=== PATIENT | female | born 1950 | race Caucasian/White ===

== ENCOUNTER → 2021-02-08 | Outpatient (CLI) | payer MEDICARE, OTHER ==
--- NOTE | 2021-02-08 10:05 | CARD ---
MR#: [id number] Date of Study: 02/08/2021 Ordering Physician: JAY GALDAMEZ, Referring Physician: JAY GALDAMEZ, Tech: Massiel Young [facility] APPROVED REPORT EXAM: Two-dimensional and M-mode echocardiogram with Doppler and color Doppler. Other Information Quality : Average Rhythm : Pacemaker INDICATION Dyspnea Surgery/Intervention Pacemaker: RISK FACTORS Hypertension Hyperlipidemia 2D DIMENSIONS RVDd3.1 (2.9-3.5cm)Left Atrium(2D)3.0 (1.6-4.0cm) IVSd0.9 (0.7-1.1cm)Aortic Root(2D)3.2 (2.0-3.7cm) LVDd4.9 (3.9-5.9cm)LVOT Diameter2.3 (1.8-2.4cm) PWd0.7 (0.7-1.1cm)LVDs3.5 (2.5-4.0cm) FS (%) 27.9 %SV60.7 ml LVEF(%)53.9 (>50%) Aortic Valve AoV Peak Terry.130.9cm/sAoV VTI23.9cm AO Peak GR.6.8mmHgLVOT Peak Terry.67.8cm/s AO Mean GR.3mmHgAVA (VMAX)2.20cm2 Pulmonary Valve PV Peak Asgmuljh61.7cm/s Tricuspid Valve TR P. Fjrmidig358nv/sTR Peak Gr.32mmHg LEFT VENTRICLE The left ventricle is normal size. There is normal left ventricular wall thickness. The left ventricu lar systolic function is moderately impaired. The ejection fraction is estimated at 35%. There is bebeto bal hypokinesis of the left ventricle. Transmitral Doppler flow pattern is Grade I-abnormal relaxatio n pattern. RIGHT VENTRICLE The right ventricle is normal size. There is normal right ventricular wall thickness. The right ventr icular systolic function is normal. ATRIA The left atrium size is normal. The right atrium size is normal. The interatrial septum is intact wit h no evidence for an atrial septal defect or patent foramen ovale as noted on 2-D or Doppler imaging. AORTIC VALVE The aortic valve is normal in structure and function. Doppler and Color Flow revealed no significant aortic regurgitation. There is no significant aortic valvular stenosis. MITRAL VALVE The mitral valve is normal in structure and function. There is no evidence of mitral valve prolapse. There is no mitral valve stenosis. Doppler and Color-flow revealed mild mitral regurgitation. TRICUSPID VALVE The tricuspid valve is normal in structure and function. Doppler and Color Flow revealed mild tricusp id regurgitation. Estimated PAP 42 mmHg. There is no tricuspid valve stenosis. PULMONIC VALVE The pulmonary valve is normal in structure and function. Doppler and Color Flow revealed mildtrace to mild pulmonic valvular regurgitation. GREAT VESSELS The aortic root is normal in size. The ascending aorta is normal in size. The IVC is dilated and chase apses >50% with inspiration. PERICARDIAL EFFUSION There is no evidence of significant pericardial effusion. Critical Notification Critical Value: No <Conclusion> The left ventricular systolic function is moderately impaired. The ejection fraction is estimated at 35%. Pacer wire noted RA/RV. Mild mitral regurgitation. Mild tricuspid regurgitation. Estimated PAP 42 mmHg. There is no evidence of significant pericardial effusion. Signed by : Mark Wheatley, Electronically Approved : 02/08/2021 10:04:32
== END ==
LOC: ECHO 07:45
PROVIDERS: ATTEND Internal Medicine Cardiovascular Disease
DX: I08.8 Other rheumatic multiple valve diseases (principal); I25.10 Atherosclerotic heart disease of native coronary artery without angina pectoris
CPT/HCPCS: 93306

== ENCOUNTER → 2021-06-21 | Outpatient (CLI) | payer MEDICARE, OTHER ==
--- NOTE | 2021-06-23 09:59 | CARD ---
MR#: [id number] Date of Study: 06/21/2021 Ordering Physician: JAY GALDAMEZ, Referring Physician: JAY GALDAMEZ, Tech: Dale Mejia [facility] APPROVED REPORT EXAM: Two-dimensional and M-mode echocardiogram with Doppler and color Doppler. Other Information Quality : AverageHR: 68bpm Rhythm : NSR INDICATION Non Ischemic cardiomyopathy Surgery/Intervention ICD/Pacemaker: RISK FACTORS Smoking 2D DIMENSIONS Left Atrium(2D)2.9 (1.6-4.0cm)IVSd0.9 (0.7-1.1cm) Aortic Root(2D)3.7 (2.0-3.7cm)LVDd4.2 (3.9-5.9cm) LVOT Diameter2.1 (1.8-2.4cm)PWd0.9 (0.7-1.1cm) LVDs2.9 (2.5-4.0cm)FS (%) 29.7 % SV44.7 mlLVEF(%)57.2 (>50%) Aortic Valve AoV Peak Terry.119.8cm/sAoV VTI23.9cm AO Peak GR.5.7mmHgLVOT Peak Terry.73.8cm/s AO Mean GR.3mmHgAVA (VMAX)2.18cm2 Mitral Valve MV E Etemycki44.8cm/sMV E Peak Gr.2mmHg MV DECEL [id number] A Redkelee54.4cm/s MV E Mean Gr.1mmHgE/A Ratio1.0 Pulmonary Valve PV Peak Rpeppelm85.9cm/s Tricuspid Valve TR P. Lmbubiks211ls/sTR Peak Gr.33mmHg Pulmonary Vein S1 Fsbhcyae12.5cm/sD2 Ypbpmwrw17.3cm/s LEFT VENTRICLE The left ventricle is normal size. There is normal left ventricular wall thickness. The systolic func tion is mildly impaired. EF estimate is 45% Septal motion suggestive of conduction defect. Otherwise, there is mild global hypokinesis. Transmitral Doppler flow pattern is Grade I-abnormal relaxation pa ttern. No left ventricle thrombus noted on this study. There is no ventricular septal defect visualiz ed. There is no left ventricular aneurysm. There is no mass noted in the left ventricle. RIGHT VENTRICLE The right ventricle is normal size. There is normal right ventricular wall thickness. The right ventr icular systolic function is normal. Pacemaker wire noted in the RV and RA ATRIA The left atrium size is normal. The right atrium size is normal. The interatrial septum is intact wit h no evidence for an atrial septal defect or patent foramen ovale as noted on 2-D or Doppler imaging. AORTIC VALVE The aortic valve is mildly sclerotic. Doppler and Color Flow revealed no significant aortic regurgita tion. There is no significant aortic valvular stenosis. There is no aortic valvular vegetation. MITRAL VALVE The mitral valve is mildly thickened. There is no evidence of mitral valve prolapse. There is no mitr al valve stenosis. Doppler and Color-flow revealed trace mitral regurgitation. TRICUSPID VALVE The tricuspid valve is normal in structure and function. Doppler and Color Flow revealed mild tricusp id regurgitation. The PA pressure was estimated at 37 mmHg. There is no tricuspid valve prolapse or v egetation. There is no tricuspid valve stenosis. PULMONIC VALVE Doppler and Color Flow revealed no pulmonic valvular regurgitation. There is no pulmonic valvular aaron nosis. GREAT VESSELS The aortic root is normal in size. The ascending aorta is normal in size. The IVC is normal in size a nd collapses >50% with inspiration. PERICARDIAL EFFUSION There is no pleural effusion. There is no evidence of significant pericardial effusion. Critical Notification Critical Value: No <Conclusion> The systolic function is mildly impaired. EF estimate is 45% Septal motion suggestive of conduction defect. Otherwise, there is mild global hypokinesis. Pacemaker wire noted in the RV and RA Doppler and Color Flow revealed mild tricuspid regurgitation. The PA pressure was estimated at 37 mmH g. Signed by : Jay Galdamez, Electronically Approved : 06/23/2021 09:58:43
== END ==
LOC: ECHO 08:30
PROVIDERS: ATTEND Internal Medicine Cardiovascular Disease
DX: I08.3 Combined rheumatic disorders of mitral, aortic and tricuspid valves (principal); I42.9 Cardiomyopathy, unspecified; Z95.0 Presence of cardiac pacemaker
CPT/HCPCS: 93306